=== PATIENT | female | born 1985 | race African-American/Black ===

== ENCOUNTER 2016-10-07 12:25 | Emergency (ER) | payer MEDICARE ==
[~2016-10-07] VITALS: Ht 157.5 cm; Wt 54.4 kg
[2016-10-07 12:25] VITALS: BP_SYST 124
[2016-10-07] MEDS ORDERED: ONDANSETRON 4 MG ODT TAB PO ONE (13:15)
[2016-10-07 13:39] LABS: BASOPHILS # (AUTO) 0.2 K/uL (0.0-0.2); BASOPHILS % (AUTO) 2.9 % (0.0-2.0); EOSINOPHILS # (AUTO) 0.1 K/uL (0.0-0.4); EOSINOPHILS % (AUTO) 2.5 % (0.0-4.0); HEMOGLOBIN 12.7 g/dL (12.0-16.0); LYMPHOCYTES # (AUTO) 2.3 K/uL (1.0-5.5); LYMPHOCYTES % (AUTO) 39.1 % (20.5-51.5); MEAN CORPUSCULAR HEMOGLOBIN 33 pg (27-31); MEAN CORPUSCULAR HGB CONC 33 % (32-36); MEAN CORPUSCULAR VOLUME 98 fL (79.0-98.0); MONOCYTES # (AUTO) 0.3 K/uL (0.0-1.0); NEUTROPHILS % (AUTO) 50.5 % (40.0-70.0); PLATELET COUNT (AUTO) 325 K/uL (130-430); RED BLOOD CELL COUNT(AUTO) 3.88 MIL/uL (4.2-6.2); RED CELL DISTRIBUTION WIDTH 13.8 % (9.0-15.0); WHITE BLOOD COUNT (AUTO) 5.9 K/uL (4.8-10.8)
[2016-10-07 13:43] LABS: CALCIUM 8.9 mg/dL (8.4-11.0); CREATININE 0.67 mg/dL (0.55-1.30); POTASSIUM 4.3 mmol/L (3.5-5.1)
[2016-10-07 13:47] LABS: INR 1.2 (0.8-1.2); PROTHROMBIN TIME 12.7 SECS (9.5-12.5)
[2016-10-07 13:59] LABS: ALBUMIN 4.1 g/dL (3.4-4.8); THYROID STIMULATING HORMONE 0.23 uIu/mL (0.34-4.82); TOTAL BILIRUBIN 0.2 mg/dL (0.0-1.0)
[2016-10-07 14:55] LABS: BILIRUBIN,URINE NEGATIVE (NEGATIVE); CLARITY/URINE CLEAR (CLEAR); COLOR,URINE YELLOW (YELLOW); GLUCOSE,URINE NEGATIVE (NEGATIVE); KETONES,URINE TRACE (NEGATIVE); LEUKOCYTE ESTERASE ,URINE NEGATIVE (NEGATIVE); NITRITE, URINE NEGATIVE (NEGATIVE); PH,URINE 8.5 (5.0-8.0); PROTEIN URINE TRACE (NEGATIVE); UROBILINOGEN,URINE 0.2 (0.2-1.0)
[2016-10-07 14:58] LABS: BLOOD, URINE TRACE (NEGATIVE)
[2016-10-07 15:04] LABS: BACTERIA,URINE MODERATE /HPF (None Seen)
[2016-10-07] MEDS ORDERED: NACL 0.9% 1,000 ML IV ONE (16:45)
[2016-10-07] MEDS ORDERED: LEVOTHYROXINE SODIUM 0.05 MG TABLET PO SCH (16:45)
[2016-10-07] MEDS ORDERED: LEVOTHYROXINE SODIUM 0.05 MG TABLET PO ONE (16:52)
[2016-10-07 19:13] VITALS: BP_SYST 121
== END 2016-10-07 19:13 | disposition home or self-care (01) ==
LOC: SED 12:25
DX: R11.2 Nausea with vomiting, unspecified (principal); E03.9 Hypothyroidism, unspecified; F14.10 Cocaine abuse, uncomplicated; F17.210 Nicotine dependence, cigarettes, uncomplicated; Z88.5 Allergy status to narcotic agent
CPT/HCPCS: 36415; 80053; 81000; 83690; 84439; 84443; 84703; 85025; 85610; 85730; 87086; 96360; 99284; J7030; Q0162

== ENCOUNTER 2017-02-06 14:58 | Emergency (ER) | payer MEDICARE ==
[~2017-02-06] VITALS: Ht 157.5 cm; Wt 52.6 kg
[2017-02-06 15:03] VITALS: BP_SYST 118
[2017-02-06] MEDS ORDERED: KETOROLAC TROMETHAMINE 60 MG/2 ML VIAL IM ONE (17:15)
[2017-02-06 18:20] VITALS: BP_SYST 118
== END 2017-02-06 18:20 | disposition home or self-care (01) ==
LOC: SED 14:58
DX: R07.89 Other chest pain (principal); R03.0 Elevated blood-pressure reading, without diagnosis of hypertension; F17.210 Nicotine dependence, cigarettes, uncomplicated; E07.9 Disorder of thyroid, unspecified; G89.29 Other chronic pain; M54.9 Dorsalgia, unspecified; F11.20 Opioid dependence, uncomplicated; Z88.6 Allergy status to analgesic agent
CPT/HCPCS: 71010; 81025; 93005; 96372; 99284; J1885

== ENCOUNTER 2018-06-25 01:43 | Emergency (ER) | payer BC, MEDICARE ==
[~2018-06-25] VITALS: Ht 157.5 cm; Wt 54.4 kg
[2018-06-25 01:59] VITALS: BP_SYST 135
[2018-06-25 04:50] LABS: BILIRUBIN,URINE NEGATIVE (NEGATIVE); BLOOD, URINE 1+ (NEGATIVE); CLARITY/URINE CLEAR (CLEAR); COLOR,URINE YELLOW (YELLOW); GLUCOSE,URINE NEGATIVE (NEGATIVE); KETONES,URINE NEGATIVE (NEGATIVE); LEUKOCYTE ESTERASE ,URINE NEGATIVE (NEGATIVE); NITRITE, URINE NEGATIVE (NEGATIVE); PROTEIN URINE NEGATIVE (NEGATIVE); UROBILINOGEN,URINE 0.2 (0.2-1.0)
[2018-06-25 05:05] LABS: BARBITURATE, URINE NEGATIVE (NEG <=200); BENZODIAZEPINE, URINE POSITIVE (NEG <=150); CANNABINOID, URINE NEGATIVE (NEG <=50); COCAINE, URINE POSITIVE (NEG <=150); METHAMPHETAMINES SCREEN,URINE POSITIVE (NEG <=500); OPIATE, URINE POSITIVE (NEG <=100); PHENCYCLIDINE SCREEN,URINE NEGATIVE (NEG <=25); UR TRICYCLIC ANTIDEPRESSANTS NEGATIVE (NEG <=300); URINE AMPHETAMINE NEGATIVE (NEG <=500); URINE METHADONE NEGATIVE (NEG <=200); URINE OXYCODONE SCREEN NEGATIVE (NEG <=100); URINE PROPOXYPHENE SCREEN NEGATIVE (NEG <=300)
[2018-06-25 05:08] LABS: BACTERIA,URINE MANY /HPF (None Seen); WBC,URINE 0-3 /HPF (0-3)
[2018-06-25 06:00] LABS: BASOPHILS % (AUTO) 0.8 % (0.0-2.0); EOSINOPHILS # (AUTO) 0.2 K/uL (0.0-0.4); EOSINOPHILS % (AUTO) 2.6 % (0.0-4.0); HEMOGLOBIN 12.4 g/dL (12.0-16.0); LYMPHOCYTES # (AUTO) 3.1 K/uL (1.0-5.5); LYMPHOCYTES % (AUTO) 49.1 % (20.5-51.5); MEAN CORPUSCULAR HEMOGLOBIN 33 pg (27-31); MEAN CORPUSCULAR HGB CONC 33 % (32-36); MEAN CORPUSCULAR VOLUME 99 fL (79.0-98.0); MONOCYTES # (AUTO) 0.5 K/uL (0.0-1.0); MONOCYTES % (AUTO) 7.5 % (1.7-9.3); NEUTROPHILS # (AUTO) 2.5 K/uL (1.8-7.7); PLATELET COUNT (AUTO) 210 K/uL (130-430); RED BLOOD CELL COUNT(AUTO) 3.76 MIL/uL (4.2-6.2); RED CELL DISTRIBUTION WIDTH 13.2 % (9.0-15.0); WHITE BLOOD COUNT (AUTO) 6.2 K/uL (4.8-10.8)
[2018-06-25 06:45] VITALS: BP_SYST 132
[2018-06-25 06:58] LABS: ERYTHROCYTE SEDIMENTATION RATE 2 MM/HR (0-20)
[2018-06-28 12:35] LABS: CHLAMYDIA TRACHOMATIS NAA Negative (Negative); NEISSERIA GONORRHOEAE NAA Negative (Negative)
== END 2018-06-25 06:45 | disposition home or self-care (01) ==
LOC: SED 01:43
DX: N39.0 Urinary tract infection, site not specified (principal); M19.90 Unspecified osteoarthritis, unspecified site; E03.9 Hypothyroidism, unspecified; Z88.5 Allergy status to narcotic agent
CPT/HCPCS: 36415; 80307; 81000-TC; 81025; 85025; 85651-TC; 86592; 86694; 87086; 87491; 87591; 99284

== ENCOUNTER 2019-02-15 18:21 | Emergency (ER) | payer BC, MEDICAID ==
[~2019-02-15] VITALS: Ht 157.5 cm; Wt 56.7 kg
[2019-02-15 18:29] VITALS: BP_SYST 140
[2019-02-15 19:06] LABS: BASOPHILS # (AUTO) 0.1 K/uL (0.0-0.2); BASOPHILS % (AUTO) 1.1 % (0.0-2.0); EOSINOPHILS # (AUTO) 0.1 K/uL (0.0-0.4); EOSINOPHILS % (AUTO) 1.2 % (0.0-4.0); HEMATOCRIT 39.8 % (36-48); HEMOGLOBIN 13.4 g/dL (12.0-16.0); LYMPHOCYTES # (AUTO) 2.1 K/uL (1.0-5.5); LYMPHOCYTES % (AUTO) 41.5 % (20.5-51.5); MEAN CORPUSCULAR HEMOGLOBIN 34 pg (27-31); MEAN CORPUSCULAR HGB CONC 34 % (32-36); MEAN CORPUSCULAR VOLUME 101 fL (79.0-98.0); MONOCYTES # (AUTO) 0.4 K/uL (0.0-1.0); MONOCYTES % (AUTO) 7.8 % (1.7-9.3); NEUTROPHILS # (AUTO) 2.4 K/uL (1.8-7.7); NEUTROPHILS % (AUTO) 48.4 % (40.0-70.0); PLATELET COUNT (AUTO) 300 K/uL (130-430); RED BLOOD CELL COUNT(AUTO) 3.96 MIL/uL (4.2-6.2); RED CELL DISTRIBUTION WIDTH 14.2 % (9.0-15.0)
[2019-02-15 19:14] LABS: CALCIUM 8.8 mg/dL (8.4-11.0); CREATININE 0.67 mg/dL (0.55-1.30)
[2019-02-15 19:18] LABS: INR 1.1 (0.8-1.2); PROTHROMBIN TIME 11.1 SECS (9.5-12.5)
[2019-02-15 19:20] LABS: ALBUMIN 4.3 g/dL (3.4-4.8); TOTAL BILIRUBIN 0.3 mg/dL (0.0-1.0)
--- NOTE | 2019-02-15 19:30 | NUR ---
Patient to ER bed 2 to gown for evaluation. Side rails up.
--- NOTE | 2019-02-15 19:48 | NUR ---
Pt presents to the ER with c/o dizziness, fatigue, nausea, weakness and diarrhea. Pt states these symptoms began approximately 3 months ago but it was intermittent. Pt states when she got out of school, approximately monday, symptoms became more consistent. Pt states "when I wake up in the morning, I am so tired, I cant get up and when I do, I get a sharp pain in my chest with palpitations and then I want to go lay down because I am so dizzy and tired." Pt states no pain at this time. Pt states she has a history of hypothyroidism and has controlled it with diet since getting diagnosed. Will continue to monitor.
--- NOTE | 2019-02-15 20:12 | NUR ---
ER Dr. Kennedy at bedside examining patient.
[2019-02-15 21:19] VITALS: BP_SYST 136
--- NOTE | 2019-02-15 21:19 | NUR ---
Note undone in EDM - 02/16/19 at 0754 by SRIRAM Patient given written and verbal discharge instructions and verbalizes understanding. ER MD Kennedy discussed with patient the results and treatment provided. Patient in stable condition. ID arm band removed. Rx of given. Patient educated on pain management and to follow up with PMD. Pain Scale 0/10. Opportunity for questions provided and answered. Medication side effect fact sheet provided.
--- NOTE | 2019-02-15 21:19 | NUR ---
Patient given written and verbal discharge instructions and verbalizes understanding. ER MD Kennedy discussed with patient the results and treatment provided. Patient in stable condition. ID arm band removed. No Rx given. Patient educated on pain management and to follow up with PMD. Pain Scale 0/10. Opportunity for questions provided and answered. Medication side effect fact sheet provided.
== END 2019-02-15 21:19 | disposition home or self-care (01) ==
LOC: SED 18:21
DX: R00.2 Palpitations (principal); F41.9 Anxiety disorder, unspecified; F17.210 Nicotine dependence, cigarettes, uncomplicated; E03.9 Hypothyroidism, unspecified; M54.5 Low back pain; F11.20 Opioid dependence, uncomplicated; Z88.6 Allergy status to analgesic agent
CPT/HCPCS: 36415; 70450-TC; 71045; 80053; 84443-TC; 84484; 84703; 85025; 85610-TC; 85730-TC; 93005; 99284

== ENCOUNTER 2019-12-22 19:31 | Emergency (ER) | payer BC, MEDICAID ==
[~2019-12-22] VITALS: Ht 170.2 cm; Wt 65.8 kg
[2019-12-22 19:43] VITALS: BP_SYST 158
--- NOTE | 2019-12-22 19:50 | NUR ---
Placed in room 6 . Placed on supervisor small appliance assembly, blood pressure machine and pulse oximeter. To gown for exam. Side rails up.
--- NOTE | 2019-12-22 19:55 | NUR ---
PT PRESENTS FROM HOME WITH C/O DIZZINESS, FATIGUE, N/V, ABD/FLANK PAIN, VAGINAL BURNING AND ITCHING X 3 WEEKS. RECENTLY TREATED WITH CIPRO FOR UTI 2 WEEKS AGO. PT REPORTS HX OF HYPOTHYROIDISM. AAOX4, V/S STABLE
[2019-12-22] MEDS ORDERED: NACL 0.9% 1,000 ML IV ONE (20:00)
[2019-12-22] MEDS ORDERED: ONDANSETRON HCL 4 MG/2 ML VIAL IVP ONE (20:00)
--- NOTE | 2019-12-22 20:00 | NUR ---
ER DR. DOMINGUEZ AT THE BEDSIDE EVALUATING PT
[2019-12-22 20:09] LABS: BILIRUBIN,URINE NEGATIVE (NEGATIVE); BLOOD, URINE 1+ (NEGATIVE); CLARITY/URINE SL CLOUDY (CLEAR); COLOR,URINE YELLOW (YELLOW); GLUCOSE,URINE NEGATIVE (NEGATIVE); KETONES,URINE TRACE (NEGATIVE); LEUKOCYTE ESTERASE ,URINE NEGATIVE (NEGATIVE); NITRITE, URINE POSITIVE (NEGATIVE); PROTEIN URINE NEGATIVE (NEGATIVE); UROBILINOGEN,URINE 0.2 (0.2-1.0)
--- NOTE | 2019-12-22 20:13 | NUR ---
CALM, ALERT, RESP UNLABORED, SKIN WARM AND DRY. COMMUNICATES CLEARLY IN FULL COMPLETE SENTENCES, SKIN WARM AND DRY. DENIES CP/SOB
--- NOTE | 2019-12-22 20:15 | NUR ---
MEDICATED ORDERED, PT IV HL 18 GUAGE LT AC
[2019-12-22 20:23] LABS: BASOPHILS # (AUTO) 0.1 K/uL (0.0-0.2); BASOPHILS % (AUTO) 1.4 % (0.0-2.0); EOSINOPHILS # (AUTO) 0.1 K/uL (0.0-0.4); HEMATOCRIT 37.2 % (36-48); HEMOGLOBIN 12.5 g/dL (12.0-16.0); LYMPHOCYTES # (AUTO) 2.5 K/uL (1.0-5.5); LYMPHOCYTES % (AUTO) 34.4 % (20.5-51.5); MEAN CORPUSCULAR HEMOGLOBIN 33 pg (27-31); MEAN CORPUSCULAR HGB CONC 34 % (32-36); MEAN CORPUSCULAR VOLUME 97 fL (79.0-98.0); MONOCYTES # (AUTO) 0.6 K/uL (0.0-1.0); MONOCYTES % (AUTO) 8.6 % (1.7-9.3); NEUTROPHILS # (AUTO) 3.9 K/uL (1.8-7.7); NEUTROPHILS % (AUTO) 54.6 % (40.0-70.0); PLATELET COUNT (AUTO) 217 K/uL (130-430); RED BLOOD CELL COUNT(AUTO) 3.82 MIL/uL (4.2-6.2); RED CELL DISTRIBUTION WIDTH 13.8 % (9.0-15.0); WHITE BLOOD COUNT (AUTO) 7.1 K/uL (4.8-10.8)
[2019-12-22 20:33] LABS: INR 1.1 (0.8-1.2); PROTHROMBIN TIME 10.9 SECS (9.5-12.5)
[2019-12-22 20:34] LABS: BACTERIA,URINE MANY /HPF (None Seen)
[2019-12-22 20:34] LABS: CALCIUM 9.1 mg/dL (8.4-11.0); CREATININE 0.56 mg/dL (0.55-1.30); POTASSIUM 3.9 mmol/L (3.5-5.1)
[2019-12-22 20:35] LABS: MUCUS,URINE 1+ /LPF (None Seen)
[2019-12-22 20:39] LABS: ALBUMIN 3.7 g/dL (3.4-4.8); TOTAL BILIRUBIN 0.2 mg/dL (0.0-1.0)
[2019-12-22] MEDS ORDERED: cefTRIAXone 1 GM in D5W 50 ML IV ONE (21:30)
[2019-12-22] MEDS ORDERED: cefTRIAXone 1 GM VIAL ONE (22:04)
--- NOTE | 2019-12-22 22:25 | NUR ---
UP AMBULATING STEADY TO BATHROOM, CALM, ALERT, RESP UNLABORED
[2019-12-22] MEDS ORDERED: KETOROLAC TROMETHAMINE 30 MG VIAL IVP ONE (22:45)
--- NOTE | 2019-12-22 22:54 | NUR ---
Patient given written and verbal discharge instructions and verbalizes understanding. ER MD discussed with patient the results and treatment provided. Patient in stable condition. Rx of given. Patient educated on pain management and to follow up with PMD. Pain Scale 2/10 Opportunity for questions provided and answered. Medication side effect fact sheet provided.
[2019-12-22 22:55] VITALS: BP_SYST 135
== END 2019-12-22 22:55 | disposition home or self-care (01) ==
LOC: SED 19:31
DX: N39.0 Urinary tract infection, site not specified (principal); E86.0 Dehydration; R11.2 Nausea with vomiting, unspecified; N20.0 Calculus of kidney; Z88.5 Allergy status to narcotic agent
CPT/HCPCS: 36415; 74176; 80053; 81000; 81025; 82150; 83690; 85025; 85610; 87086; 87491; 87591; 96365; 96375; 99291; J0696; J1885; J2405; J7030

== ENCOUNTER 2020-03-04 20:08 | Emergency (ER) | payer BC, SELFPAY ==
[~2020-03-04] VITALS: Ht 157.5 cm; Wt 59.9 kg
[2020-03-04 20:20] VITALS: BP_SYST 112
--- NOTE | 2020-03-04 20:23 | NUR ---
Patient triaged and placed in waiting room. VSS and patient appears in no acute distress at this time. Accompanied by friend , awaiting available bed, and MD notified of need for MSE.
--- NOTE | 2020-03-04 20:24 | NUR ---
Pt brought by self, A&Ox4,pt presents to ER with headache and lower back pain, pt states she had a CT on December 21 and was diagnosed with kidney stone, pt denies N/V/D or fever, skin pink and warm, cap refill <3, VSS, respirations even and unlabored.
--- NOTE | 2020-03-04 20:30 | NUR ---
Dr Harmon evaluating patient in the tent
[2020-03-04 21:21] LABS: CALCIUM 8.5 mg/dL (8.4-11.0); CREATININE 0.75 mg/dL (0.55-1.30); POTASSIUM 3.7 mmol/L (3.5-5.1)
[2020-03-04 21:36] LABS: ALBUMIN 3.3 g/dL (3.4-4.8); THYROID STIMULATING HORMONE 1.03 uIu/mL (0.36-3.74); TOTAL BILIRUBIN 0.4 mg/dL (0.0-1.0)
[2020-03-04 21:37] LABS: HEMATOCRIT 37.2 % (36-48); HEMOGLOBIN 12.3 g/dL (12.0-16.0); MEAN CORPUSCULAR HEMOGLOBIN 33 pg (27-31); MEAN CORPUSCULAR HGB CONC 33 % (32-36); MEAN CORPUSCULAR VOLUME 99 fL (79.0-98.0); RED BLOOD CELL COUNT(AUTO) 3.75 MIL/uL (4.2-6.2); WHITE BLOOD COUNT (AUTO) 14.7 K/uL (4.8-10.8)
[2020-03-04 21:38] LABS: BASOPHILS % (AUTO) 0.3 % (0.0-2.0); EOSINOPHILS # (AUTO) 0.1 K/uL (0.0-0.4); EOSINOPHILS % (AUTO) 0.5 % (0.0-4.0); LYMPHOCYTES # (AUTO) 1.8 K/uL (1.0-5.5); LYMPHOCYTES % (AUTO) 12.1 % (20.5-51.5); MONOCYTES # (AUTO) 1.7 K/uL (0.0-1.0); MONOCYTES % (AUTO) 11.7 % (1.7-9.3); NEUTROPHILS # (AUTO) 11.1 K/uL (1.8-7.7); NEUTROPHILS % (AUTO) 75.4 % (40.0-70.0); PLATELET COUNT (AUTO) 223 K/uL (130-430); RED CELL DISTRIBUTION WIDTH 13.9 % (9.0-15.0)
--- NOTE | 2020-03-04 23:07 | NUR ---
PT MOVED TO [place] [id number]
--- NOTE | 2020-03-04 23:08 | NUR ---
PT TO CT FOR CT OF ABDOMEN
--- NOTE | 2020-03-04 23:22 | NUR ---
PT BACK FROM CT LAYING IN [facility] 2 BED WITH BOTH SIDE RAILS UP BED LOCKED AND IN LOWEST POSITION VITAL SIGNS STABLE WILL CONTINUE TO MONITOR
[2020-03-05] MEDS ORDERED: KETOROLAC TROMETHAMINE 60 MG/2 ML VIAL IM ONE ×2 (03:00→03:08)
--- NOTE | 2020-03-05 03:02 | NUR ---
MD DOMINGUEZ AT BEDSIDE EVALUATING PT
[2020-03-05] MEDS ORDERED: HYDROcodone/ACETAMIN 5-325 MG TAB (NORCO/ VICODIN) PO ONE (03:45)
[2020-03-05 03:46] LABS: BILIRUBIN,URINE NEGATIVE (NEGATIVE); BLOOD, URINE 1+ (NEGATIVE); CLARITY/URINE CLEAR (CLEAR); COLOR,URINE YELLOW (YELLOW); GLUCOSE,URINE NEGATIVE (NEGATIVE); KETONES,URINE NEGATIVE (NEGATIVE); LEUKOCYTE ESTERASE ,URINE TRACE (NEGATIVE); NITRITE, URINE NEGATIVE (NEGATIVE); PH,URINE 6.5 (5.0-8.0); PROTEIN URINE NEGATIVE (NEGATIVE); UROBILINOGEN,URINE 0.2 (0.2-1.0)
[2020-03-05] MEDS ORDERED: HYDROcodone/ACETAMIN 5-325 MG TAB (NORCO/ VICODIN) ONE (03:50)
[2020-03-05 03:53] LABS: BACTERIA,URINE MANY /HPF (None Seen)
[2020-03-05 03:54] VITALS: BP_SYST 112
--- NOTE | 2020-03-05 03:54 | NUR ---
Patient given written and verbal discharge instructions and verbalizes understanding. ER MD DOMINGUEZ discussed with patient the results and treatment provided. Patient in stable condition. ID arm band removed. Rx of NORCO given. Patient educated on pain management and to follow up with PMD. Pain Scale 3/10. Opportunity for questions provided and answered. Medication side effect fact sheet provided.
--- NOTE | 2020-03-05 14:00 | NUR ---
RECEIVED CALL FROM PHARMACY, PT HAD RECENTLY FILLED PRESCRIPTION FOR NORCO THAT GETS MONTHLY OF 45 NORCO 10MG ON 02/19/21. PHARMACY QUESTIONING NORCO 5MG PRESCRIPTION RECEIVED THIS AM. PRESCRIPTION CANCELLED. PT SHORTLY AFTER SHOWED UP TO ER AND QUESTIONED WHY PRESCRIPTION WAS CANCELLED. EXPLAINED TO PT ABOUT GETTING TOO MUCH NORCO AND EFFECTS OF NARCOTICS. PT APPEARED HEAVILY MEDICATED DURING CONVERSATION. PT STATES HER NORCO WAS STOLEN, THEN HER NORCO FELL DOWN A DRAIN, THEN SHE MISPLACED THEM, CONCLUSION WAS THAT SHE RAN OUT. PT SLURRING WORDS AND COULD NOT COMPREHEND CONVERSATION. PT THEN LEFT BUILDING AND DROVE OFF.
== END 2020-03-05 03:54 | disposition still patient (30) ==
LOC: SED 20:08
DX: R10.9 Unspecified abdominal pain (principal); R51.9 Headache, unspecified; E03.9 Hypothyroidism, unspecified; Z88.6 Allergy status to analgesic agent; Z20.822 Contact with and (suspected) exposure to COVID-19
CPT/HCPCS: 36415; 70450; 71045; 74176; 76376 ×2; 80053; 81000; 81025; 84443; 84702; 85025; 87086; 87426; 96372; 99285; J1885

== ENCOUNTER 2020-12-21 15:05 | Emergency (ER) | payer BC, SELFPAY ==
[~2020-12-21] VITALS: Ht 157.5 cm; Wt 68.0 kg
[2020-12-21 15:05] VITALS: BP_SYST 120
--- NOTE | 2020-12-21 15:05 | NUR ---
Pt to bed 7 for evaluation.
--- NOTE | 2020-12-21 15:10 | NUR ---
Pt AAO and ambulatory reporting pelvic pain 07/30 that started six days ago. Pt reports cramping and bleeding following an she had last Monday. Pt reports worsening cramping and feels like she still has retained products.
--- NOTE | 2020-12-21 15:28 | NUR ---
ER at bedside examining patient.
--- NOTE | 2020-12-21 15:41 | NUR ---
Aaron hastings in ED - 12/21/20 at 1628 by [email or web address] MARILYN Kay at bedside examining patient.
--- NOTE | 2020-12-21 15:50 | NUR ---
# 20 gauge angiocath placed to right AC. Use of asceptic technique. Opsite placed over site. Blood return noted. Blood for lab drawn from site. Flushed with 10 cc of normal saline. No evidence of infiltration noted. Patient tolerated well.
[2020-12-21 15:55] LABS: BASOPHILS % (AUTO) 0.5 % (0.0-2.0); EOSINOPHILS # (AUTO) 0.1 K/uL (0.0-0.4); EOSINOPHILS % (AUTO) 1.9 % (0.0-4.0); HEMATOCRIT 34.3 % (36-48); HEMOGLOBIN 11.5 g/dL (12.0-16.0); LYMPHOCYTES # (AUTO) 2.9 K/uL (1.0-5.5); LYMPHOCYTES % (AUTO) 39.5 % (20.5-51.5); MEAN CORPUSCULAR HEMOGLOBIN 32 pg (27-31); MEAN CORPUSCULAR HGB CONC 34 % (32-36); MEAN CORPUSCULAR VOLUME 97 fL (79.0-98.0); MONOCYTES # (AUTO) 0.7 K/uL (0.0-1.0); MONOCYTES % (AUTO) 10.3 % (1.7-9.3); NEUTROPHILS # (AUTO) 3.5 K/uL (1.8-7.7); NEUTROPHILS % (AUTO) 47.8 % (40.0-70.0); PLATELET COUNT (AUTO) 280 K/uL (130-430); RED BLOOD CELL COUNT(AUTO) 3.55 MIL/uL (4.2-6.2); RED CELL DISTRIBUTION WIDTH 13.4 % (9.0-15.0); WHITE BLOOD COUNT (AUTO) 7.3 K/uL (4.8-10.8)
--- NOTE | 2020-12-21 16:00 | NUR ---
Assisted Dr. Kay with pelvic exam. Pt verbalized consent prior to procedure and pt tolerated the procedure well.
--- NOTE | 2020-12-21 16:10 | NUR ---
Pt to U/S dept
[2020-12-21 16:20] LABS: ANION GAP 5 (5-15); CALCIUM 8.3 mg/dL (8.4-11.0); CHLORIDE 102 mmol/L (98-107); CREATININE 0.67 mg/dL (0.55-1.30); GLUCOSE 91 mg/dL (70-99); POTASSIUM 3.9 mmol/L (3.5-5.1); SODIUM SERUM 137 mmol/L (136-145); UREA NITROGEN, BLOOD 15 mg/dL (8-21)
[2020-12-21] MEDS ORDERED: MORPHINE 2 MG/ML INJ. SYRINGE IVP ONE (16:30)
[2020-12-21] MEDS ORDERED: ONDANSETRON HCL 4 MG/2 ML VIAL IVP ONE (16:30)
[2020-12-21 16:35] LABS: GFR AFRICAN AMERICAN 128 mL/min (>90)
--- NOTE | 2020-12-21 16:40 | NUR ---
Pt back from /s dept.
--- NOTE | 2020-12-21 16:45 | NUR ---
Urine specimen obtained and sent to lab for analysis. Pt also medicated for pelvic pain 09/29. See eMAR.
[2020-12-21 16:47] LABS: ALANINE AMINOTRANSFERASE 17 U/L (12-78); ALBUMIN 3.9 g/dL (3.4-4.8); ASPARTATE AMINOTRANSFERASE 10 U/L (10-37); TOTAL BILIRUBIN 0.1 mg/dL (0.0-1.0)
[2020-12-21 16:51] LABS: HCG,QUANTITATIVE 2604 mIU/ML (0-6)
[2020-12-21 16:57] LABS: PROTHROMBIN TIME 10.7 SECS (9.5-12.5)
[2020-12-21 17:28] LABS: BILIRUBIN,URINE NEGATIVE (NEGATIVE); BLOOD, URINE 3+ (NEGATIVE); CLARITY/URINE CLEAR (CLEAR); COLOR,URINE YELLOW (YELLOW); GLUCOSE,URINE NEGATIVE (NEGATIVE); KETONES,URINE NEGATIVE (NEGATIVE); LEUKOCYTE ESTERASE ,URINE NEGATIVE (NEGATIVE); NITRITE, URINE NEGATIVE (NEGATIVE); PROTEIN URINE NEGATIVE (NEGATIVE); UROBILINOGEN,URINE 0.2 (0.2-1.0)
[2020-12-21] MEDS ORDERED: IBUPROFEN 600 MG TABLET PO ONE (17:30)
[2020-12-21] MEDS ORDERED: HYDROcodone/ACETAMIN 10-325 MG TAB PO ONE (17:30)
[2020-12-21] MEDS ORDERED: IBUP-1969 PO (17:36)
[2020-12-21 17:46] LABS: BILIRUBIN,DIRECT < 0.1 mg/dL (0.0-0.3)
--- NOTE | 2020-12-21 18:00 | NUR ---
Pt resting quietly in no distress awaiting disposition.
[2020-12-21 18:16] LABS: BACTERIA,URINE FEW /HPF (None Seen); WBC,URINE 0-3 /HPF (0-3)
[2020-12-21 18:17] LABS: MUCUS,URINE None Seen /LPF (None Seen)
--- NOTE | 2020-12-21 18:58 | NUR ---
Report given to ZOILA Fischer who will assume care.
[2020-12-21 19:33] VITALS: BP_SYST 109
--- NOTE | 2020-12-21 19:34 | NUR ---
Patient given written and verbal discharge instructions and verbalizes understanding. ER MD discussed with patient the results and treatment provided. Patient in stable condition. ID arm band removed. IV catheter removed intact and dressing applied, no active bleeding. Rx of ibuprofen given. Patient educated on pain management and to follow up with PMD. Pain Scale 2/10. Opportunity for questions provided and answered. Medication side effect fact sheet provided.
[2020-12-24 22:06] LABS: CHLAMYDIA TRACHOMATIS NAA Negative (Negative); NEISSERIA GONORRHOEAE NAA Negative (Negative)
== END 2020-12-21 19:34 | disposition home or self-care (01) ==
LOC: SED 15:05
DX: O03.4 Incomplete spontaneous abortion without complication (principal); Z88.5 Allergy status to narcotic agent; Z79.899 Other long term (current) drug therapy
CPT/HCPCS: 36415; 76830; 76857; 80048; 80076; 81000; 84702; 85025; 85610; 85730; 86886; 86900; 86901; 87491; 87591; 96374; 96375; 99284; J2270; J2405

== ENCOUNTER 2021-06-03 13:27 | Emergency (ER) | payer BC ==
[~2021-06-03] VITALS: Ht 157.5 cm; Wt 65.8 kg
[~2021-06-03 13:27] MED LIST: IBUP-1969 PO
[2021-06-03 13:30] VITALS: BP_SYST 123
[2021-06-03] MEDS ORDERED: METR-154 PO (13:46)
[2021-06-03 14:15] VITALS: BP_SYST 123
== END 2021-06-03 14:00 | disposition home or self-care (01) ==
LOC: SED 13:27
DX: K52.9 Noninfective gastroenteritis and colitis, unspecified (principal); Z88.5 Allergy status to narcotic agent
CPT/HCPCS: 99281; 99283

== ENCOUNTER 2021-08-17 11:25 | Emergency (ER) | payer BC ==
[~2021-08-17] VITALS: Ht 157.5 cm; Wt 63.5 kg
[~2021-08-17 11:25] MED LIST changes: +METR-154 PO
--- NOTE | 2021-08-17 11:25 | NUR ---
Patient to ER bed 8 to gown for evaluation. Side rails up. Report given to RN.
--- NOTE | 2021-08-17 11:27 | NUR ---
Pt brought by self, A&Ox4, pt presents to ER with dizziness/fatigue , denies N/V, skin pink and warm, cap refill <3, VSS, respirations even and unlabored, will cont to monitor.
[2021-08-17 11:28] VITALS: BP_SYST 112
--- NOTE | 2021-08-17 12:00 | NUR ---
Dr Sesay evaluating patient at bedside
[2021-08-17 12:52] LABS: CALCIUM 7.8 mg/dL (8.4-11.0); CREATININE 0.85 mg/dL (0.55-1.30); HEMATOCRIT 34.6 % (36-48); HEMOGLOBIN 11.8 g/dL (12.0-16.0); MEAN CORPUSCULAR HEMOGLOBIN 32 pg (27-31); MEAN CORPUSCULAR HGB CONC 34 % (32-36); MEAN CORPUSCULAR VOLUME 94 fL (79.0-98.0); PLATELET COUNT (AUTO) 220 K/uL (130-430); POTASSIUM 3.8 mmol/L (3.5-5.1); WHITE BLOOD COUNT (AUTO) 4.3 K/uL (4.8-10.8)
[2021-08-17 13:06] LABS: ALBUMIN 3.4 g/dL (3.4-4.8); THYROID STIMULATING HORMONE 0.2 uIu/mL (0.36-3.74); TOTAL BILIRUBIN 0.1 mg/dL (0.0-1.0)
[2021-08-17 13:20] LABS: ATYPICAL LYMPHOCYTES % 10 % (0-0); BASOPHILS % (MANUAL) 0 % (0-2); EOSINOPHILS % (MANUAL) 1 % (0-7); LYMPHOCYTES % (MANUAL) 61 % (20-46); MONOCYTES % (MANUAL) 11 % (0-11)
[2021-08-17 14:08] VITALS: BP_SYST 112
--- NOTE | 2021-08-17 14:09 | NUR ---
Patient given written and verbal discharge instructions and verbalizes understanding. ER MD discussed with patient the results and treatment provided. Patient in stable condition. ID arm band removed. No Rx given. Patient educated on pain management and to follow up with PMD. Pain Scale 0/10 . Opportunity for questions provided and answered. Medication side effect fact sheet provided.
== END 2021-08-17 14:09 | disposition home or self-care (01) ==
LOC: SED 11:25
DX: R53.1 Weakness (principal); R53.83 Other fatigue; G43.909 Migraine, unspecified, not intractable, without status migrainosus; F11.20 Opioid dependence, uncomplicated; Z88.5 Allergy status to narcotic agent; Z20.822 Contact with and (suspected) exposure to COVID-19
CPT/HCPCS: 36415; 80053; 81025; 84443; 85007; 85027; 99283

== ENCOUNTER 2021-11-15 16:52 | Emergency (ER) | payer BC ==
[~2021-11-15] VITALS: Ht 157.5 cm; Wt 54.4 kg
[2021-11-15 17:00] VITALS: BP_SYST 141
--- NOTE | 2021-11-15 17:11 | NUR ---
URINE SENT TO LAB.
[2021-11-15] MEDS ORDERED: DIPHENHYDRAMINE INJ 50 MG/ML VIAL IM ONE (17:15)
--- NOTE | 2021-11-15 17:20 | NUR ---
PT BIBA FROM HOME AAOX4. CC GENERALIZED FEELING OF TIGHTNESS/NUMBNESS ON RIGHT SIDE OF BODY WITH EPISODES OF SPASMS. C/O EPISODES OF DIZZINESS AND WEAKNESS AND SOME FEELINGS OF ANXIETY. REPORTS SYMPTOMS STARTED APPROX. 6 MOS AGO, TODAY WAS EXPERIENCING CHEST DISCOMFORT 5/10 ON THE RIGHT SIDE. RESPIRATIONS EVEN AND UNLABORED, SPEAKING IN FULL SENTENCES. BED LOW, RAILS UP.
[2021-11-15 17:58] LABS: BASOPHILS % (AUTO) 0.6 % (0.0-2.0); EOSINOPHILS # (AUTO) 0.1 K/uL (0.0-0.4); EOSINOPHILS % (AUTO) 1.7 % (0.0-4.0); HEMATOCRIT 36.8 % (36-48); LYMPHOCYTES # (AUTO) 3.1 K/uL (1.0-5.5); LYMPHOCYTES % (AUTO) 52.1 % (20.5-51.5); MEAN CORPUSCULAR VOLUME 94 fL (79.0-98.0); MONOCYTES # (AUTO) 0.5 K/uL (0.0-1.0); MONOCYTES % (AUTO) 8.6 % (1.7-9.3); NEUTROPHILS # (AUTO) 2.2 K/uL (1.8-7.7); PLATELET COUNT (AUTO) 295 K/uL (130-430); RED BLOOD CELL COUNT(AUTO) 3.93 MIL/uL (4.2-6.2); RED CELL DISTRIBUTION WIDTH 13.2 % (9.0-15.0); WHITE BLOOD COUNT (AUTO) 5.9 K/uL (4.8-10.8)
[2021-11-15 18:03] VITALS: BP_SYST 112
--- NOTE | 2021-11-15 18:05 | NUR ---
# 20 gauge angiocath placed to RAC. Use of asceptic technique. Opsite placed over site. Blood return noted. Flushed with 10 cc of normal saline. No evidence of infiltration noted. Patient tolerated well.
[2021-11-15 18:21] LABS: ANION GAP 8 (5-15); CALCIUM 9.2 mg/dL (8.4-11.0); CHLORIDE 104 mmol/L (98-107); GLUCOSE 95 mg/dL (70-99); POTASSIUM 3.5 mmol/L (3.5-5.1); UREA NITROGEN, BLOOD 5 mg/dL (8-21)
[2021-11-15 18:22] LABS: GFR AFRICAN AMERICAN 121 mL/min (>90)
--- NOTE | 2021-11-15 18:30 | NUR ---
ER at bedside examining patient.
[2021-11-15 18:32] LABS: ALANINE AMINOTRANSFERASE 10 U/L (12-78); ALBUMIN 3.9 g/dL (3.4-4.8); ASPARTATE AMINOTRANSFERASE 10 U/L (10-37); TOTAL BILIRUBIN 0.2 mg/dL (0.0-1.0)
[2021-11-15] MEDS ORDERED: carisoprodoL 350 MG TABLET PO SCH (18:45)
[2021-11-15] MEDS ORDERED: NACL 0.9% 1,000 ML IV ONE (18:45)
--- NOTE | 2021-11-15 18:54 | NUR ---
Medicated per MD orders. IVF infusing with no s/s of infiltration at this time. Will cont to monitor
[2021-11-15] MEDS ORDERED: carisoprodoL 350 MG TABLET PO ONE (19:00)
[2021-11-15] MEDS ORDERED: DIPH25CA83 PO (20:20)
[2021-11-15] MEDS ORDERED: SOM350 PO (20:22)
--- NOTE | 2021-11-15 21:03 | NUR ---
Patient given written and verbal discharge instructions and verbalizes understanding. ER MD discussed with patient the results and treatment provided. Patient in stable condition. ID arm band removed. IV catheter removed intact and dressing applied, no active bleeding. Rx of SOMA & BENADRYL given. Patient educated on pain management and to follow up with PMD. Pain Scale . Opportunity for questions provided and answered. Medication side effect fact sheet provided.
== END 2021-11-15 21:03 | disposition home or self-care (01) ==
LOC: SED 16:52
DX: R20.2 Paresthesia of skin (principal); G24.02 Drug induced acute dystonia; R42 Dizziness and giddiness; R53.1 Weakness; Z88.5 Allergy status to narcotic agent; Z79.899 Other long term (current) drug therapy
CPT/HCPCS: 99285; 96360; 70450; 71045; 80053; 85025; 84484; 36415; 76376; 81025; 96372; J1200; J7030

== ENCOUNTER 2021-11-22 09:48 | Emergency (ER) | payer BC ==
[~2021-11-22] VITALS: Ht 157.5 cm; Wt 57.6 kg
[~2021-11-22 09:48] MED LIST changes: +DIPH25CA83 PO; +SOM350 PO
[2021-11-22 10:19] VITALS: BP_SYST 154
[2021-11-22] MEDS ORDERED: BUSP5TAB3 PO (10:22)
[2021-11-22] MEDS ORDERED: HYDR-3917 PO (10:22)
--- NOTE | 2021-11-22 10:24 | NUR ---
BIBS WITH C/C OF LEFT ARM AND LEG PAIN. PT STATES PAIN IS CHRONIC IN NATURE OVER LAST FEW YEARS BUT WORSENING OVER LAST FEW MONTHS. PT STATES SHE TOOK NORCO 10/325 AT 0300 AND 0700. REPORTS HX OF NUMBNESS TO EXTREMITIES BUT DENIES AT THIS TIME. NAD NOTED. VSS, AFEBRILE. DR. BRYAN SEEN AND ASSESSED PT. PENDING DR. BRYAN'S ORDERS. WILL CONT TO MONITOR.
--- NOTE | 2021-11-22 10:28 | NUR ---
PT CLEARED FOR DC BY DR. BRYAN. RX SENT TO PT'S PHARM FOR ANXIETY AND NORCO FOR PAIN. PT VERBALIZED UNDERSTANDING OF DC INSTRUCTIONS. PT AMBULATED OUT OF ED IN STABLE CONDITION.
[2021-11-22 10:33] VITALS: BP_SYST 152
== END 2021-11-22 10:33 | disposition home or self-care (01) ==
LOC: SED 09:48
DX: R20.2 Paresthesia of skin (principal); Z88.5 Allergy status to narcotic agent; Z79.899 Other long term (current) drug therapy
CPT/HCPCS: 99283

== ENCOUNTER 2022-02-18 20:46 | Emergency (ER) | payer BC ==
[~2022-02-18] VITALS: Ht 157.5 cm; Wt 57.6 kg
[~2022-02-18 20:46] MED LIST changes: +BUSP5TAB3 PO; +HYDR-3917 PO
[2022-02-18 21:00] VITALS: BP_SYST 116
== END 2022-02-18 21:31 | disposition home or self-care (01) ==
LOC: SED 20:46
DX: Z76.0 Encounter for issue of repeat prescription (principal); Z88.5 Allergy status to narcotic agent; Z79.899 Other long term (current) drug therapy
CPT/HCPCS: 99281

== ENCOUNTER 2022-03-05 10:46 | Emergency (ER) | payer BC ==
[~2022-03-05] VITALS: Ht 157.5 cm; Wt 56.7 kg
[2022-03-05 10:46] VITALS: BP_SYST 120
--- NOTE | 2022-03-05 10:50 | NUR ---
BROUGHT INTO TRIAGE ROOM AND TRIAGED. WILL ASSUME CARE.
--- NOTE | 2022-03-05 10:52 | NUR ---
DR BRYAN TO TRIAGE ROOM FOR EVALUATION
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
[2022-03-05] MEDS ORDERED: LORA-259 PO (11:02)
[2022-03-05] MEDS ORDERED: DEXT10TA18 PO (11:02)
[2022-03-05] MEDS ORDERED: ONDA-8 TL (11:03)
--- NOTE | 2022-03-05 11:08 | NUR ---
Patient given written and verbal discharge instructions and verbalizes understanding. ER MD discussed with patient the results and treatment provided. Patient in stable condition. ID arm band removed. Rx of AMPHETAMINE SALTS, ATIVAN, ZOFRAN given. Patient educated on pain management and to follow up with PMD. Pain Scale 0/10. Opportunity for questions provided and answered. Medication side effect fact sheet provided.
== END 2022-03-05 11:08 | disposition home or self-care (01) ==
LOC: SED 10:46
DX: Z76.0 Encounter for issue of repeat prescription (principal); Z88.5 Allergy status to narcotic agent; Z79.899 Other long term (current) drug therapy
CPT/HCPCS: 99281

== ENCOUNTER 2022-03-17 17:02 | Emergency (ER) | payer BC ==
[~2022-03-17] VITALS: Ht 154.9 cm; Wt 56.7 kg
[~2022-03-17 17:02] MED LIST changes: +DEXT10TA18 PO; +LORA-259 PO; +ONDA-8 TL
[2022-03-17 17:42] VITALS: BP_SYST 129
--- NOTE | 2022-03-17 17:53 | NUR ---
RECEIVED PT FROM ZOILA WILLAMS. PT HARMEET ROBERTS FOR C/O DIZZINESS. PT STATES FROM DECREASE IN DOSE OF GABAPENTIN. PT IS AAOX4. ON R/A. DENIES N/V/D/C. SKIN CDI, WARM, NO EDEMA. SIDERAILS UP X2.
--- NOTE | 2022-03-17 18:02 | NUR ---
DR. PIERRE AT BEDSIDE TO ASSESS PT.
[2022-03-17] MEDS ORDERED: LORazepam 1 MG TABLET PO ONE (18:15)
--- NOTE | 2022-03-17 18:37 | NUR ---
SCHEDULED MED GIVEN AND TOLERATED WELL.
--- NOTE | 2022-03-17 18:37 | NUR ---
Patient given written and verbal discharge instructions and verbalizes understanding. ER MD discussed with patient the results and treatment provided. Patient in stable condition. ID arm band removed. Patient educated on pain management and to follow up with PMD. Pain Scale 0/10. Opportunity for questions provided and answered. Medication side effect fact sheet provided.
[2022-03-17 18:42] VITALS: BP_SYST 132
== END 2022-03-17 18:42 | disposition home or self-care (01) ==
LOC: SED 17:02
DX: F41.9 Anxiety disorder, unspecified (principal); F13.20 Sedative, hypnotic or anxiolytic dependence, uncomplicated; Z76.0 Encounter for issue of repeat prescription; Z88.5 Allergy status to narcotic agent; Z79.899 Other long term (current) drug therapy
CPT/HCPCS: 99281

== ENCOUNTER 2022-08-28 20:35 | Emergency (ER) | payer BC ==
[~2022-08-28] VITALS: Ht 157.5 cm; Wt 59.0 kg
[2022-08-28 20:39] VITALS: BP_SYST 112; PULSE 89; RESP 20; TEMP 98.7; O2SAT 98
[2022-08-28] MEDS ORDERED: BUPRENORPHINE HCL/NALOXONE HCL 2-0.5 MG 1 EACH TAB.SUBL SL ONE ×3 (20:45→22:06)
[2022-08-28 21:25] LABS: BASOPHILS # (AUTO) 0.1 K/uL (0.0-0.2); BASOPHILS % (AUTO) 0.8 % (0.0-2.0); EOSINOPHILS % (AUTO) 0.2 % (0.0-4.0); HEMATOCRIT 37.7 % (36-48); HEMOGLOBIN 12.4 g/dL (12.0-16.0); LYMPHOCYTES # (AUTO) 2.3 K/uL (1.0-5.5); LYMPHOCYTES % (AUTO) 31.6 % (20.5-51.5); MEAN CORPUSCULAR HEMOGLOBIN 31 pg (27-31); MEAN CORPUSCULAR HGB CONC 33 % (32-36); MEAN CORPUSCULAR VOLUME 94 fL (79.0-98.0); MONOCYTES # (AUTO) 0.7 K/uL (0.0-1.0); MONOCYTES % (AUTO) 10.1 % (1.7-9.3); NEUTROPHILS # (AUTO) 4.2 K/uL (1.8-7.7); NEUTROPHILS % (AUTO) 57.3 % (40.0-70.0); PLATELET COUNT (AUTO) 294 K/uL (130-430); RED BLOOD CELL COUNT(AUTO) 4.01 MIL/uL (4.2-6.2); RED CELL DISTRIBUTION WIDTH 14.4 % (9.0-15.0); WHITE BLOOD COUNT (AUTO) 7.3 K/uL (4.8-10.8)
[2022-08-28 21:36] LABS: CALCIUM 8.6 mg/dL (8.4-11.0); CREATININE 0.79 mg/dL (0.55-1.30)
[2022-08-28 21:41] LABS: ALBUMIN 4.1 g/dL (3.4-4.8); TOTAL BILIRUBIN 0.4 mg/dL (0.0-1.0)
[2022-08-28 22:15] LABS: BILIRUBIN,URINE NEGATIVE (NEGATIVE); BLOOD, URINE TRACE (NEGATIVE); CLARITY/URINE CLEAR (CLEAR); COLOR,URINE YELLOW (YELLOW); GLUCOSE,URINE NEGATIVE (NEGATIVE); KETONES,URINE 2+ (NEGATIVE); LEUKOCYTE ESTERASE ,URINE NEGATIVE (NEGATIVE); NITRITE, URINE NEGATIVE (NEGATIVE); PH,URINE 5.5 (5.0-8.0); PROTEIN URINE NEGATIVE (NEGATIVE); UROBILINOGEN,URINE 0.2 (0.2-1.0)
[2022-08-28 22:20] LABS: BACTERIA,URINE RARE /HPF (None Seen); MUCUS,URINE None Seen /LPF (None Seen); RBC,URINE 0-3 /HPF (0-3); WBC,URINE 0-3 /HPF (0-3)
[2022-08-28 22:24] LABS: BARBITURATE, URINE NEGATIVE (NEG <=200); BENZODIAZEPINE, URINE NEGATIVE (NEG <=150); CANNABINOID, URINE NEGATIVE (NEG <=50); COCAINE, URINE NEGATIVE (NEG <=150); METHAMPHETAMINES SCREEN,URINE NEGATIVE (NEG <=500); OPIATE, URINE NEGATIVE (NEG <=100); PHENCYCLIDINE SCREEN,URINE NEGATIVE (NEG <=25); UR TRICYCLIC ANTIDEPRESSANTS NEGATIVE (NEG <=300); URINE AMPHETAMINE NEGATIVE (NEG <=500); URINE METHADONE NEGATIVE (NEG <=200); URINE OXYCODONE SCREEN NEGATIVE (NEG <=100); URINE PROPOXYPHENE SCREEN NEGATIVE (NEG <=300)
[2022-08-28] MEDS ORDERED: BUPR1FIL3 SL (22:52)
[2022-08-28 23:30] VITALS: BP_SYST 130; PULSE 65; RESP 16; TEMP 98.7; O2SAT 99
== END 2022-08-28 23:30 | disposition home or self-care (01) ==
LOC: SED 20:42
DX: F11.23 Opioid dependence with withdrawal (principal); R50.9 Fever, unspecified; R30.0 Dysuria; Z88.5 Allergy status to narcotic agent; Z79.899 Other long term (current) drug therapy
CPT/HCPCS: 36415; 80053; 80307; 81000; 84703; 85025; 99283